=== PATIENT | male | born 1975 | race Caucasian/White ===

== ENCOUNTER 2018-01-11 14:44 | Emergency (ER) | payer SELFPAY ==
[2018-01-11 15:43] VITALS: TEMP 98.6
--- NOTE | 2018-01-11 17:55 | C.PDOC ---
History Of Present Illness Patient arrived in ED bed after being in waiting room for 2 hours and 40+ minutes. 42 y/o M s/p injury 2 months ago with resulting leg numbness, intermittent dizziness and falls. Patient states he was at this hospital after that initial accident (no previous chart found corroborating this) and had MRI but does not know what it shows. He states he has been seeing a therapist for massage like treatments but otherwise does not have a PMD and is not following up with anyone. He states that he has been having palpitations for the past week and yesterday, developed shortness of breath. Today, while walking, he became dizzy again as well as short of breath, fell, lost consciousness for approximately 5 minutes. He now complains of pain to the back of the head, neck, R sided chest and abdomen. He denies pain to extremities. Video otr owner operator used. Time Seen by Provider: 01/11/18 17:36 Chief Complaint (Nursing): Trauma Past Medical History Vital Signs: Last Vital Signs Temp 98.6 F 01/11/18 15:38 Pulse 77 01/11/18 15:38 Resp 18 01/11/18 15:38 BP 109/72 01/11/18 15:38 Pulse Ox 99 01/11/18 17:56 Family History: States: Unknown Family Hx - Social History Hx Alcohol Use: No Hx Substance Use: No - Immunization History Hx Tetanus Toxoid Vaccination: No Hx Influenza Vaccination: No Hx Pneumococcal Vaccination: No Review Of Systems Except As Marked, All Systems Reviewed And Found Negative. Constitutional: Negative for: Fever Gastrointestinal: Negative for: Diarrhea Physical Exam - Physical Exam Additional Physical Exam Comments: Gen: NAD Head: NC Eyes: PERRL ENT: MMM Neck: +midline tenderness Chest: +R sided tenderness CV: Regular rate Lungs: CTA b/l Abd: Soft, R sided tenderness Skin: No rash Back: No midline tenderness Extremities: No swelling or tenderness. FROM x 4. Neuro: Alert ED Course And Treatment O2 Sat by Pulse Oximetry: 99 Medical Decision Making Medical Decision Making: Will obtain imaging to rule out bleed/fracture, CTA to rule out PE, labs, EKG. Patient will require admission for syncope. Will sign out to ED night team. Disposition - Disposition Disposition Time: 18:06 Condition: FAIR Forms: [employer] ([place]) - Clinical Impression Clinical Impression: Dyspnea, Fall
[2018-01-11 18:20] LABS: BASO % 0.5 % (0.0-2.0); EOS # 0.2 K/uL (0.0-0.7); EOS % 3.3 % (0.0-4.0); HEMOGLOBIN 15.7 g/dL (12.0-18.0); LYMPH # 2.2 K/uL (1.0-4.3); LYMPH % 34.3 % (20.0-40.0); MEAN CORPUSCULAR HEMOGLOBIN 30.2 pg (27.0-31.0); MEAN CORPUSCULAR HGB CONC 35.1 g/dL (33.0-37.0); MEAN PLATELET VOLUME 8.2 fL (7.2-11.7); MONO # 0.4 K/uL (0.0-0.8); NEUT # 3.6 K/uL (1.8-7.0); NEUT % 55.9 % (50.0-75.0); NRBC % 0.1 % (0.0-2.0); RBC 5.2 Mil/uL (4.40-5.90); RED CELL DISTRIBUTION WIDTH 13.2 % (11.5-14.5); WHITE BLOOD COUNT 6.4 K/uL (4.8-10.8)
[2018-01-11 18:32] LABS: ALB/GLOB RATIO 1.3 (1.0-2.1); ALBUMIN 4.5 g/dL (3.5-5.0); ALT/SGPT 95 U/L (21-72); AST/SGOT 47 U/L (17-59); BLOOD UREA NITROGEN 12 mg/dL (9-20); CALCIUM 9.2 mg/dl (8.6-10.4); GFR AFRICAN-AMERICAN > 60; GFR NON-AFRICAN AMERICAN > 60; LIPASE 98 U/L (23-300)
[2018-01-11 18:43] LABS: B-TYPE NATRIURETIC PEPTIDE 25.3 pg/mL (0-450); CK-MB 0.77 ng/mL (0.0-3.38)
[2018-01-11] MEDS ORDERED: Iodixanol 320 MG/ML 100 ML BOTTLE IV ONE (18:48)
[2018-01-11 19:01] LABS: SQUAMOUS EPITHIAL < 1 /hpf (0-5); URINE BACTERIA RARE (<OCC); URINE BILIRUBIN NEGATIVE (NEGATIVE); URINE BLOOD NEGATIVE (NEGATIVE); URINE CLARITY Clear (Clear); URINE COLOR Yellow (YELLOW); URINE GLUCOSE (UA) NORMAL (Normal); URINE LEUKOCYTE ESTERASE NEG Leu/uL (Negative); URINE NITRATE NEGATIVE (NEGATIVE); URINE PROTEIN NEGATIVE (NEGATIVE); URINE UROBILINOGEN NORMAL mg/dL (0.2-1.0)
[2018-01-11 19:21] LABS: BARBITURATES, UR NEGATIVE (NEGATIVE); BENZODIAZEPINES, UR NEGATIVE (NEGATIVE); OPIATES, UR NEGATIVE (NEGATIVE); PHENCYCLIDINE, UR NEGATIVE (NEGATIVE)
--- NOTE | 2018-01-11 20:05 | CT ---
EXAM: CT Head Without Intravenous Contrast EXAM DATE/TIME: 01/11/2018 6:01 PM CLINICAL HISTORY: 42 years old, male; Pain; Headache; Tension; Additional info: Fall, headache, loc TECHNIQUE: Axial computed tomography images of the head/brain without intravenous contrast. All CT scans at this facility use one or more dose reduction techniques, viz.: automated exposure control; ma/kV adjustment per patient size (including targeted exams where dose is matched to indication; i.e. head); or iterative reconstruction technique. COMPARISON: There are no prior studies for comparison. FINDINGS: Brain: Ventricles are normal in size and configuration. There is no midline shift. There are no intra-axial or extra-axial mass lesions or areas of hemorrhage. There are no abnormal fluid collections. Meza-white differentiation is maintained. Ventricles: See above. Bones: Cranial vault is intact. Soft tissues: unremarkable Sinuses: There is right maxillary sinusitis. Ears and mastoids: Middle ears and mastoids are unremarkable Orbits: Orbital contents are unremarkable. IMPRESSION: No acute intracranial abnormality; right maxillary sinusitis
--- NOTE | 2018-01-11 20:09 | CT ---
EXAM: CT Cervical Spine Without Intravenous Contrast EXAM DATE/TIME: 01/11/2018 6:01 PM CLINICAL HISTORY: 42 years old, male; Pain; Neck pain; Additional info: Fall, neck pain TECHNIQUE: Axial computed tomography images of the cervical spine without intravenous contrast. All CT scans at this facility use one or more dose reduction techniques, viz.: automated exposure control; ma/kV adjustment per patient size (including targeted exams where dose is matched to indication; i.e. head); or iterative reconstruction technique. Coronal and sagittal reformatted images were created and reviewed. COMPARISON: There are no prior studies for comparison. FINDINGS: Vertebrae: There is maintenance of the cervical lordosis. There is no prevertebral soft tissue swelling. There are no fractures. There is minimal spondylosis C6/C7. Disc spaces are maintained. Facet joints align anatomically. Spinous processes align in the expected fashion. Bone mineralization is normal. Discs/spinal canal/neural foramina: see above Soft tissues: See above. Thyroid: Thyroid is unremarkable Lung apices: Lung apices are clear. IMPRESSION: Minimal spondylosis, no fracture
--- NOTE | 2018-01-11 20:21 | CT ---
EXAM: CT Abdomen and Pelvis With Intravenous Contrast EXAM DATE/TIME: 01/11/2018 6:01 PM CLINICAL HISTORY: 42 years old, male; Pain; Abdominal pain; Flank; Right lower quadrant (rlq); Additional info: Fall, abd pain, r sided pain TECHNIQUE: Axial computed tomography images of the abdomen and pelvis with intravenous contrast. All CT scans at this facility use one or more dose reduction techniques, viz.: automated exposure control; ma/kV adjustment per patient size (including targeted exams where dose is matched to indication; i.e. head); or iterative reconstruction technique. Coronal and sagittal reformatted images were created and reviewed. CONTRAST: 0 mL of visipaque 320 administered intravenously. COMPARISON: There are no prior studies for comparison. FINDINGS: Lower thorax: Heart size is normal. There is dependent atelectasis at the lung bases. There are no effusions. There is no pneumothorax. ABDOMEN: Liver: There is fatty infiltration of the liver. Gallbladder and bile ducts: unremarkable Pancreas: Pancreas is mildly atrophic. Spleen: unremarkable Adrenals: unremarkable Kidneys and ureters: There is a low attenuation left renal lesion too small to characterize.Kidneys and ureters are otherwise unremarkable. Stomach and bowel: Stomach is almost empty. Rotation is normal. There is fluid and air throughout the small bowel. Ileocecal region is unremarkable. Appendix and terminal ileum are unremarkable. Colon is incompletely distended which limits evaluation.There is diverticulosis. Appendix: See stomach and bowel PELVIS: Bladder: unremarkable Reproductive: Seminal vesicles and prostate are unremarkable. ABDOMEN and PELVIS: Intraperitoneal space: There is no free air or free fluid. Bones/joints: There are degenerative changes in the osseus structures. No acute displaced rib fractures are visualized. Soft tissues: There is a small fat containing umbilical hernia. Vasculature: Vascular structures are unremarkable. Lymph nodes: There is no pathologic adenopathy. IMPRESSION: No acute solid viscera or bowel injury, no fracture seen
--- NOTE | 2018-01-11 20:22 | CT ---
EXAM: CT Angiography Chest With Intravenous Contrast EXAM DATE/TIME: 01/11/2018 6:01 PM CLINICAL HISTORY: 42 years old, male; Signs and symptoms; Dyspnea and shortness of breath; Additional info: Palpitations, dyspnea, syncope today, r sided rib TECHNIQUE: Axial computed tomographic angiography images of the chest with intravenous contrast using pulmonary embolism protocol. All CT scans at this facility use one or more dose reduction techniques, viz.: automated exposure control; ma/kV adjustment per patient size (including targeted exams where dose is matched to indication; i.e. head); or iterative reconstruction technique. MIP reconstructed images were created and reviewed. Coronal and sagittal reformatted images were created and reviewed. CONTRAST: 100 mL of visipaque 320 administered intravenously. COMPARISON: There are no prior studies for comparison. FINDINGS: Heart, aorta and Pulmonary arteries: Heart size is normal. There is no pericardial effusion. Aorta is normal in caliber.There are no pulmonary emboli. Lungs and pleural spaces: Trachea and main bronchi are patent.There is no pneumothorax. There is dependent atelectasis bilaterally. There is no focal consolidation or contusion. There is minimal scarring in the lingula. Mediastinum: Esophagus is unremarkable. There is shotty mediastinal nodes. There is no hilar adenopathy. Thyroid: Thyroid is not optimally demonstrated. Bones/joints: There are no acute displaced rib fractures. Bony structures are unremarkable. Soft tissues: unremarkable Upper abdomen: There are no acute abnormalities in the visualized portion of the abdomen. IMPRESSION: No acute intrathoracic injury, no fracture seen; no pulmonary embolus
[2018-01-11 22:59] VITALS: BP 131/86; PULSE 80; RESP 18; O2SAT 97
--- NOTE | 2018-01-11 23:28 | CP.PCM.CON ---
<Mary Anne High E - Last Filed: 01/12/18 03:17> History of Present Illness - History of Present Illness History of Present Illness: Medicine Consult note CC: Syncope HPI: Patient is a 42 year old male with no past medical hx, s/p injury at work in October. Patient reports that he suffered injury to his neck and back while he was lifting crates of milk and started experiencing dizziness/ right-sided numbness post-injury. Since the injury, patient has been Dr. Enoch Oconnell , a chiropractor. Yesterday, patient he felt dizzy while walking; fell and lost consciousness for approximately 5 minutes. Patient does not remember any bystanders. However, patient reports that he got up and rested against the wall for 5 minutes and then walked 2-3 blocks to a friend in order to obtain transportation. He was brought to the hospital by a friend and patient was able to get out of the car and ambulates towards the ED. During the encounter, patient reports right-sided numbness but he was able to move his right arm and actively look for necessary when prompted. In addition, patient also stated that he was having palpitations and chest pain but denies any head injury post fall. Also, during this encounter, patient changes his story of present illness multiple times. PMD: None PMHx: Denies PSHx: Denies FHx: Mother: Hx of diabetes and depression Medications: None Allergies: NKDA Social Hx: Lives with some friend. Denies current or former tobacco, ETOH or illicit drug use Review of Systems - Constitutional Constitutional: Weakness. absent: Chills, Fever, Headache - EENT Eyes: absent: Blurred Vision, Change in Vision Ears: Dizziness - Cardiovascular Cardiovascular: Chest Pain, Rapid Heart Rate. absent: Chest Pain with Activity , Diaphoresis, Dyspnea - Respiratory Respiratory: Dyspnea. absent: Cough, Wheezing - Gastrointestinal Gastrointestinal: absent: Abdominal Pain, Constipation, Diarrhea, Nausea, Vomiting - Musculoskeletal Musculoskeletal: Numbness, Tingling Additional comments: Right sided numbness and tingling - Neurological Neurological: Dizziness, Numbness, Tingling, Weakness. absent: Lack of Coordination, Loss of Vision - Endocrine Endocrine: Palpitations Past Patient History - Past Social History Smoking Status: Never Smoked - PSYCHIATRIC Hx Substance Use: No - SURGICAL HISTORY Hx Surgeries: No Meds Home Medications: Home Medication List Medication Instructions Recorded Confirmed Type Naproxen 500 mg PO BID PRN #14 ect 01/11/18 Rx Allergies/Adverse Reactions: Allergies Allergy/AdvReac Type Severity Reaction Status Date / Time No Known Allergies Allergy Verified 01/11/18 15:43 Physical Exam - Constitutional Appears: No Acute Distress - Head Exam Head Exam: ATRAUMATIC, NORMAL INSPECTION - Eye Exam Eye Exam: EOMI, Normal appearance, PERRL - ENT Exam ENT Exam: Mucous Membranes Moist - Respiratory Exam Respiratory Exam: Clear to Auscultation Bilateral, NORMAL BREATHING PATTERN. absent: Prolonged Expiratory Phase, Rhonchi, Wheezes, Respiratory Distress - Cardiovascular Exam Cardiovascular Exam: REGULAR RHYTHM, +S1, +S2. absent: Tachycardia - GI/Abdominal Exam GI & Abdominal Exam: Normal Bowel Sounds, Soft. absent: Tenderness - Extremities Exam Extremities exam: Positive for: normal inspection. Negative for: calf tenderness, pedal edema - Neurological Exam Neurological exam: Alert, Oriented x3 Additional comments: Patient struggled to stick out his tongue but as normal speech with tongue movement - Psychiatric Exam Additional comments: appears malingering - Skin Skin Exam: Normal Color Results - Vital Signs Recent Vital Signs: Last Vital Signs Temp 98.6 F 01/11/18 22:58 Pulse 80 01/11/18 22:58 Resp 18 01/11/18 22:58 BP 131/86 01/11/18 22:58 Pulse Ox 97 01/11/18 22:58 - Labs Result Diagrams: 01/11/18 18:17 01/11/18 18:17 Labs: Laboratory Results - last 24 hr 01/11/18 01/11/18 01/11/18 15:45 18:17 18:17 WBC 6.4 RBC 5.20 Hgb 15.7 Hct 44.7 MCV 86.0 MCH 30.2 MCHC 35.1 RDW 13.2 Plt Count 234 MPV 8.2 Neut % (Auto) 55.9 Lymph % (Auto) 34.3 [place] % (Auto) 6.0 Eos % (Auto) 3.3 Baso % (Auto) 0.5 Neut # (Auto) 3.6 Lymph # (Auto) 2.2 [place] # (Auto) 0.4 Eos # (Auto) 0.2 Baso # (Auto) 0.0 PT INR APTT Sodium 139 Potassium 3.7 Chloride 100 Carbon Dioxide 28 Anion Gap 14 BUN 12 Creatinine 0.8 Est GFR ( Amer) > 60 Est GFR (Non-Af Amer) > 60 POC Glucose (mg/dL) 90 Random Glucose 87 Calcium 9.2 Total Bilirubin 1.1 AST 47 ALT 95 H Alkaline Phosphatase 72 Total Creatine Kinase 106 CK-MB (Mass) 0.77 Troponin I < 0.0120 NT-Pro-B Natriuret Pep 25.3 Total Protein 7.9 Albumin 4.5 Globulin 3.4 Albumin/Globulin Ratio 1.3 Lipase 98 Urine Color Urine Clarity Urine pH Ur Specific [place] Urine Protein Urine Glucose (UA) Urine Ketones Urine Blood Urine Nitrate Urine Bilirubin Urine Urobilinogen Ur Leukocyte Esterase Urine WBC (Auto) Ur Squamous Epith Cells Urine Bacteria Urine Opiates Screen Urine Methadone Screen Ur Barbiturates Screen Ur Phencyclidine Scrn Ur Amphetamines Screen U Benzodiazepines Scrn U Oth Cocaine Metabols U Cannabinoids Screen 01/11/18 01/11/18 01/11/18 18:17 18:52 18:52 WBC RBC Hgb Hct MCV MCH MCHC RDW Plt Count MPV Neut % (Auto) Lymph % (Auto) [place] % (Auto) Eos % (Auto) Baso % (Auto) Neut # (Auto) Lymph # (Auto) [place] # (Auto) Eos # (Auto) Baso # (Auto) PT 11.0 INR 1.0 APTT 35 H Sodium Potassium Chloride Carbon Dioxide Anion Gap BUN Creatinine Est GFR ( Amer) Est GFR (Non-Af Amer) POC Glucose (mg/dL) Random Glucose Calcium Total Bilirubin AST ALT Alkaline Phosphatase Total Creatine Kinase CK-MB (Mass) Troponin I NT-Pro-B Natriuret Pep Total Protein Albumin Globulin Albumin/Globulin Ratio Lipase Urine Color Yellow Urine Clarity Clear Urine pH 6.0 Ur Specific [place] 1.017 Urine Protein Negative Urine Glucose (UA) Normal Urine Ketones Negative Urine Blood Negative Urine Nitrate Negative Urine Bilirubin Negative Urine Urobilinogen Normal Ur Leukocyte Esterase Neg Urine WBC (Auto) < 1 Ur Squamous Epith Cells < 1 Urine Bacteria Rare Urine Opiates Screen Negative Urine Methadone Screen Negative Ur Barbiturates Screen Negative Ur Phencyclidine Scrn Negative Ur Amphetamines Screen Negative U Benzodiazepines Scrn Negative U Oth Cocaine Metabols Negative U Cannabinoids Screen Negative Assessment & Plan (1) Fall Assessment and Plan: Stable, labs WNL Head CT: No acute intracranial abnormality; right maxillary sinusitis Patient ambulates, post-fall patient walked 2-3 blocks to a friend in order to obtain transportation. He was brought to the hospital by a friend and patient was able to get out of the car and ambulates towards the ED. Status: Acute (2) Syncope Assessment and Plan: R/O PE Chest CT: No acute intrathoracic injury, no fracture seen; no pulmonary embolus Status: Acute (3) Neck pain Assessment and Plan: Post- work injury: Cervical spine CT: Vertebrae: There is maintenance of the cervical lordosis. There is no prevertebral soft tissue swelling. There are no fractures. There is minimal spondylosis C6/C7. Disc spaces are maintained. Facet joints align anatomically. Spinous processes align in the expected fashion. Bone mineralization is normal. Discs/spinal canal/neural foramina: see above * Overall impression: Minimal spondylosis, no fracture During the encounter, patient was able to move his neck and head without difficulty Status: Acute (4) Abdominal complaints Assessment and Plan: Abdomen/Pelvis CT: No acute solid viscera or bowel injury, no fracture seen Disposition: Patient remained hemodynamically stable with normal labs and imaging. Patient reports that he was able to ambulate 2-3 blocks to his friend house post-fall and was able to walk to the ED after he was dropped off by his friend. During patient encounter, patient was able to move his right arm and hand ( reported numbness/tingling) without difficulty and look for documents in his bagback. In addition, patient story about present illness and work injury was with multiple inconsistency Patient was said to be discharge and to follow up at [facility] Status: Acute <Daniel Pack P - Last Filed: 01/12/18 06:46> Results - Vital Signs Recent Vital Signs: Last Vital Signs Temp 98.6 F 01/11/18 22:58 Pulse 80 01/11/18 22:58 Resp 18 01/11/18 22:58 BP 131/86 01/11/18 22:58 Pulse Ox 97 01/11/18 22:58 - Labs Result Diagrams: 01/11/18 18:17 01/11/18 18:17 Labs: Laboratory Results - last 24 hr 01/11/18 01/11/18 01/11/18 15:45 18:17 18:17 WBC 6.4 RBC 5.20 Hgb 15.7 Hct 44.7 MCV 86.0 MCH 30.2 MCHC 35.1 RDW 13.2 Plt Count 234 MPV 8.2 Neut % (Auto) 55.9 Lymph % (Auto) 34.3 [place] % (Auto) 6.0 Eos % (Auto) 3.3 Baso % (Auto) 0.5 Neut # (Auto) 3.6 Lymph # (Auto) 2.2 [place] # (Auto) 0.4 Eos # (Auto) 0.2 Baso # (Auto) 0.0 PT INR APTT Sodium 139 Potassium 3.7 Chloride 100 Carbon Dioxide 28 Anion Gap 14 BUN 12 Creatinine 0.8 Est GFR ( Amer) > 60 Est GFR (Non-Af Amer) > 60 POC Glucose (mg/dL) 90 Random Glucose 87 Calcium 9.2 Total Bilirubin 1.1 AST 47 ALT 95 H Alkaline Phosphatase 72 Total Creatine Kinase 106 CK-MB (Mass) 0.77 Troponin I < 0.0120 NT-Pro-B Natriuret Pep 25.3 Total Protein 7.9 Albumin 4.5 Globulin 3.4 Albumin/Globulin Ratio 1.3 Lipase 98 Urine Color Urine Clarity Urine pH Ur Specific [place] Urine Protein Urine Glucose (UA) Urine Ketones Urine Blood Urine Nitrate Urine Bilirubin Urine Urobilinogen Ur Leukocyte Esterase Urine WBC (Auto) Ur Squamous Epith Cells Urine Bacteria Urine Opiates Screen Urine Methadone Screen Ur Barbiturates Screen Ur Phencyclidine Scrn Ur Amphetamines Screen U Benzodiazepines Scrn U Oth Cocaine Metabols U Cannabinoids Screen 01/11/18 01/11/18 01/11/18 18:17 18:52 18:52 WBC RBC Hgb Hct MCV MCH MCHC RDW Plt Count MPV Neut % (Auto) Lymph % (Auto) [place] % (Auto) Eos % (Auto) Baso % (Auto) Neut # (Auto) Lymph # (Auto) [place] # (Auto) Eos # (Auto) Baso # (Auto) PT 11.0 INR 1.0 APTT 35 H Sodium Potassium Chloride Carbon Dioxide Anion Gap BUN Creatinine Est GFR ( Amer) Est GFR (Non-Af Amer) POC Glucose (mg/dL) Random Glucose Calcium Total Bilirubin AST ALT Alkaline Phosphatase Total Creatine Kinase CK-MB (Mass) Troponin I NT-Pro-B Natriuret Pep Total Protein Albumin Globulin Albumin/Globulin Ratio Lipase Urine Color Yellow Urine Clarity Clear Urine pH 6.0 Ur Specific [place] 1.017 Urine Protein Negative Urine Glucose (UA) Normal Urine Ketones Negative Urine Blood Negative Urine Nitrate Negative Urine Bilirubin Negative Urine Urobilinogen Normal Ur Leukocyte Esterase Neg Urine WBC (Auto) < 1 Ur Squamous Epith Cells < 1 Urine Bacteria Rare Urine Opiates Screen Negative Urine Methadone Screen Negative Ur Barbiturates Screen Negative Ur Phencyclidine Scrn Negative Ur Amphetamines Screen Negative U Benzodiazepines Scrn Negative U Oth Cocaine Metabols Negative U Cannabinoids Screen Negative Attending/Attestation - Attestation I have personally seen and examined this patient.: Yes I have fully participated in the care of the patient.: Yes I have reviewed all pertinent clinical information: Yes Notes (Text): 01/12/18 06:35 Many inconsistencies in patients story and findings, including above and here, 1. Patient passing out and falling on concrete street without any injuries, no by standers witnessing, patient able to walk afterwards no difficulties. 2. Patient on the exam showing significant weakness in right arm and leg by using it without difficulty with observed during interview, with precision, 3. Complete numbness on right side totally new symptom just started as we were examining, not mentioned to any body earlier, including face but after lot of thinking. 4. Difficulties in moving eyes side to side when asked during exam and mentioning can not see how many fingers, when not even asked to see, and just asked to follow hand, again new complain arise during exam 5. No difficulty in speech but unable to protrude the tongue. 6. Complaining of palpitations when on exam rhythm was regular in 70's hr. Also history of injury with neck pain while carrying boxes of milk on each side , in october, no history of being in ER or imaging before as clarified by the patient. The above inconsistencies suggest no specific neurologic pattern, high suspicion of having motive towards gain.
== END 2018-01-11 23:09 | disposition home or self-care (01) ==
LOC: C.ER 14:44
DX: S16.1XXA Strain of muscle, fascia and tendon at neck level, initial encounter (principal); W18.30XA Fall on same level, unspecified, initial encounter; R55 Syncope and collapse; R10.9 Unspecified abdominal pain
CPT/HCPCS: 70450; 71275; 72125; 74177; 80053; 81001; 82550; 82553; 82948; 83690; 83880; 84484; 85025; 85610; 85730; 87086; 96374; 99285; G0480; J2270; Q9967

== ENCOUNTER 2018-02-13 14:23 | Emergency (ER) | payer OTHER ==
[2018-02-13 14:32] VITALS: O2SAT 97
[2018-02-13] MEDS ORDERED: Lidocaine 5% Patch TD STA (15:29)
--- NOTE | 2018-02-13 15:29 | C.PDOC ---
History Of Present Illness ACUTE EXAC R CHEST WALL PAIN TODAY. S/P EVAL 01/11 FOR TRAUMA, NEG CHEST CT. NO RELIEF W ALEVE LAST DOSE YEST. NO NEW TRAUMA. LOCALIZED WORSE W MOVEMENT. NO SOB , FEVER, OTHER ASSOC SX EXAM NAD CHEST WALL GEN TEND DIFFUSE LAT R CHEST WALL. NO CREPITUS, SWELL ATRAUM SKIN INTACT NO RASH/LESIONS REMAINDER NEG Time Seen by Provider: 02/13/18 14:56 Chief Complaint (Nursing): Rib Injury History Per: Patient History/Exam Limitations: no limitations Onset/Duration Of Symptoms: Hrs Current Symptoms Are (Timing): Still Present Severity: Moderate Past Medical History Reviewed: Historical Data, Nursing Documentation, Vital Signs Vital Signs: Last Vital Signs Temp 98.6 F 02/13/18 16:23 Pulse 66 02/13/18 16:23 Resp 16 02/13/18 16:23 BP 130/84 02/13/18 16:23 Pulse Ox 97 02/13/18 16:24 - Medical History PMH: No Chronic Diseases Surgical History: No Surg Hx Family History: States: No Known Family Hx - Social History Hx Alcohol Use: No Hx Substance Use: No - Immunization History Hx Tetanus Toxoid Vaccination: No Hx Influenza Vaccination: No Hx Pneumococcal Vaccination: No Review Of Systems Except As Marked, All Systems Reviewed And Found Negative. Constitutional: Negative for: Fever, Chills Cardiovascular: Positive for: Other (chest wall pain) Respiratory: Negative for: Shortness of Breath Physical Exam - Physical Exam Appears: No Acute Distress Skin: Normal Color, Warm, No Rash, Other (no lesions) Head: Atraumatic, Normacephalic Eye(s): bilateral: Normal Inspection Chest: Tenderness (chest wall - generalized tenderness diffuse lateral right chest wall), Other (no crepitus, no swelling, atraumatic) Neurological/Psych: Oriented x3, Normal Speech ED Course And Treatment O2 Sat by Pulse Oximetry: 97 (RA) Pulse Ox Interpretation: Normal Reevaluation Time: 16:23 Reassessment Condition: Improved Medical Decision Making Medical Decision Making: Plan: --Flexeril PO --Tylenol PO --Lidoderm Patch Disposition Counseled Patient/Family Regarding: Diagnosis, Need For Followup, Rx Given - Disposition Referrals: [facility] [Outside] [facility] [Outside] Disposition: HOME/ ROUTINE Disposition Time: 16:23 Condition: IMPROVED Prescriptions: Acetaminophen [Tylenol Extra Strength] 2 tab PO Q6 #30 tablet Cyclobenzaprine [Flexeril] 10 mg PO TID #15 tab Lidocaine 5% [Lidoderm] 1 ea TD PRN PRN #10 patch PRN Reason: Pain, Moderate (4-7) Instructions: Bruised Rib (DC) Forms: Work/School/Gym Excuse, [facility] (Albanian) Print Language: KAZAKH - Clinical Impression Clinical Impression: Rib pain - Scribe Statement The provider has reviewed the documentation as recorded by the Elizabeth Marcum Provider Attestation: All medical record entries made by the Elizbaeth were at my direction and personally dictated by me. I have reviewed the chart and agree that the record accurately reflects my personal performance of the history, physical exam, medical decision making, and the department course for this patient. I have also personally directed, reviewed, and agree with the discharge instructions and disposition.
[2018-02-13] MEDS ORDERED: Lidocaine 5% Patch TD ONE (15:47)
[2018-02-14 11:17] VITALS: BP 130/84; PULSE 66; RESP 16; TEMP 98.6
== END 2018-02-13 16:36 | disposition home or self-care (01) ==
LOC: C.ER 14:23
DX: R07.81 Pleurodynia (principal)